=== PATIENT | male | born 1955 | race Caucasian/White ===

== ENCOUNTER → 2021-05-07 | Outpatient (CLI) | payer MEDICARE | LOC: KOH-I 09:12 | DX: R31.0 Gross hematuria (principal); N40.2 Nodular prostate without lower urinary tract symptoms | CPT/HCPCS: 74176 ==

== ENCOUNTER → 2021-11-11 | Outpatient (CLI) | payer MEDICARE | LOC: KOH-I 11:38 | DX: R05.9 Cough, unspecified (principal) | CPT/HCPCS: 71046 ==